=== PATIENT | female | born 1945 | race Caucasian/White ===

== ENCOUNTER 2016-11-09 19:55 | Emergency (ER) | payer OTHER ==
[2016-11-09 20:02] VITALS: RESP 16; TEMP 98.6
--- NOTE | 2016-11-09 20:56 | EDPHY ---
H & P Stated Complaint: head injury, forehead hematoma vs mech fall on stairs HPI/ROS: CHIEF COMPLAINT: Fall, head injury, headache HISTORY OF PRESENT ILLNESS: Patient reports that she was [place] when she tripped and fell. She struck her left knee and then her head. No loss of conscious but she does have a hematoma on the left side of the forehead. Some nausea but no vomiting. [place] lightheaded for brief period of time. Symptoms are mild-to- moderate. Started to improve. She says that she is here because of her age and because of the hematoma. She has no complaints of pain anywhere else on her person. No other associated complaints or modifying factors. No use of anticoagulants. REVIEW OF SYSTEMS: Ten systems reviewed and are negative unless otherwise noted in the HPI PAST MEDICAL HISTORY: Reviewed. No anticoagulants SOCIAL HISTORY: Nonsmoker. She is visiting here from [place]. Her family lives here. She is here for 3 more days. FAMILY HISTORY: Noncontributory EXAMINATION General Appearance: Alert, no distress Head: normocephalic. There is a left frontal hematoma. No laceration. No Cooper sign. No raccoon eyes. No scalp hematoma Eyes: Pupils equal and round, no conjunctival pallor or injection. Bilateral arcus senilis. EOMs intact. No nystagmus. No subconjunctival hemorrhage or hyphema ENT, Mouth: Mucous membranes moist. Airway widely patent Neck: Normal inspection, supple, non-tender. No crepitus, step-off deformity Respiratory: Lungs are clear to auscultation. No wheezing, rhonchi or crackles Cardiovascular: Regular rate and rhythm. No murmur Gastrointestinal: Abdomen is soft and nontender Back: non-tender, no bony abnormalities. No midline tenderness at any level. Neurological: GCS 15. Cranial nerves 2-12 grossly intact. A&O, nonfocal, normal gait. No dysmetria. No pronator drift. Strength is symmetric in all 4 limbs Skin: Warm and dry, no rash. No laceration or abrasion. Mild ecchymosis over the left frontal hematoma. Extremities: Mild tenderness of the left knee. Full range of motion of the hips, knees and ankles symmetrically. With palpation of the extremities or pelvis. Psychiatric: Mood and affect normal DIFFERENTIAL DIAGNOSES: Including but not limited to frontal hematoma, closed head injury, intracranial hemorrhage, skull fracture, contusion MDM: 8:20 p.m. Closed head injury with frontal hematoma. Neuro intact. Nausea but no vomiting. CT scans of the head and neck ordered given the age, mechanism and hematoma. She is in no acute distress. 8:50 p.m. Notified by radiologist Dr. Barone. No acute findings on the CT scan of the head and neck. There are degenerative changes in a frontal hematoma externally. 9:00 p.m. I have re-examined the patient. She remains awake and alert. No acute distress. Neuro intact. We discussed discharge home with ice of the hematoma, Tylenol [id number] as needed, elevation of head of bed. As she is traveling, I instructed her to follow up with her primary care physician upon return home [place] later this week for the head injury and the degenerative disc disease. She should present to the nearest emergency department for any worsening headache, sudden change in headache, neck pain or stiffness, nausea, vomiting, unilateral complaints. She is comfortable with this plan and she will follow up accordingly. She is discharged home in stable condition with her daughter. SUPERVISION: Patient was evaluated in conjunction with the supervising physician. Please see their note for details. Source: Patient, Family Exam Limitations: No limitations - Personal History Current Tetanus/Diphtheria Vaccine: Yes - Medical/Surgical History Hx Asthma: No Hx Chronic Respiratory Disease: No Hx Diabetes: Yes Hx Cardiac Disease: Yes Hx Renal Disease: No Hx Cirrhosis: No Hx Alcoholism: No Hx HIV/AIDS: No Hx Splenectomy or Spleen Trauma: No Other PMH: Diabetes, HTN, glaucoma, lymphoma (in remission) - Social History Smoking Status: Former smoker Constitutional: Initial Vital Signs Temperature (C) 98.6 F 11/09/16 19:58 Heart Rate 86 11/09/16 19:58 Respiratory Rate 16 11/09/16 19:58 Blood Pressure 185/76 H 11/09/16 19:58 O2 Sat (%) 94 11/09/16 19:58 O2 Delivery Mode Room Air Allergies/Adverse Reactions: liraglutide [From Victoza] Adverse Reaction (Verified 11/09/16 20:02) Other-Enter Comments Home Medications: Medication Instructions Recorded Bimatoprost 0.01% [Lumigan 0.01% 1 drops EACHEYE HS 11/09/16 (*)] Calcium Citrate/Vitamin D3 1 each PO 11/09/16 [Calcium Citrate - Vit D Caplet] Canagliflozin/Metformin HCl 1 each PO 11/09/16 [Invokamet 150-1,000 mg Tablet] Chlorpheniramine Maleate 4 mg PO 11/09/16 Cholecalciferol (Vitamin D3) 2,000 unit PO 11/09/16 [Vitamin D3] Cyanocobalamin (Vitamin B-12) 1,000 mcg SL 11/09/16 [Vitamin B-12] Insulin Glargine [Lantus 100 12 units SC DAILY 11/09/16 UNITS/ML (*)] Levothyroxine [Synthroid 75 mcg 75 mcg PO DAILY06 11/09/16 (*)] Losartan Potassium [Cozaar 25 mg 25 mg PO DAILY 11/09/16 (*)] Multivitamin [Multi-Day Vitamins] 1 each PO 11/09/16 Potassium Gluconate 595 mg PO 11/09/16 Pravastatin Sodium 40 mg PO 11/09/16 Vit B6/Me-Thfolate/Me-B12/Ala 1 each PO 11/09/16 [Podiapn Capsule] Medical Decision Making - Diagnostics Imaging Results: Imaging Impressions Cervical Spine CT 11/09/16 20:18 Impression: No acute posttraumatic abnormality identified. 2. CT Cervical Spine Without Contrast, 20:25 History: Trauma. Fall. Technique: Multislice helical CT through the cervical spine without contrast from the skull base to T1. Soft tissue and bone evaluation is performed. Sagittal and coronal reconstructions are obtained and reviewed. Dose reduction techniques were utilized. Findings: Cervical alignment is anatomic. No fracture or dislocation is identified. The relationship between skull base and C1 is normal. The C1-C2 articulation is normally aligned, but osteoarthritic. The odontoid process is intact. Disk spaces are narrowed between C4 and C7, and associated with posterior osteophytes. 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 Facet joints are normally aligned. The facets are fused on the left between C2-C4 and T1-T2 and on the right at C3-C4 and C7 and T1. The cervical thoracic junction is normally aligned. Soft tissue window evaluation does not show evidence of epidural or prevertebral hematoma. There is right upper lobe scarring. 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 Impression: 1.No acute posttraumatic abnormality identified. 2. Multilevel degenerative change. Results communicated to Kehinde Garcia, at 11/09/2016 20:49 Final results are concordant with the initial interpretation. General information for patients regarding this examination can be found at [email or web address]. If you have questions or comments about this report, please contact me at (hospital) or [phone] (cell). Head CT 11/09/16 20:18 Impression: No acute posttraumatic abnormality identified. 2. CT Cervical Spine Without Contrast, 20:25 History: Trauma. Fall. Technique: Multislice helical CT through the cervical spine without contrast from the skull base to T1. Soft tissue and bone evaluation is performed. Sagittal and coronal reconstructions are obtained and reviewed. Dose reduction techniques were utilized. Findings: Cervical alignment is anatomic. No fracture or dislocation is identified. The relationship between skull base and C1 is normal. The C1-C2 articulation is normally aligned, but osteoarthritic. The odontoid process is intact. Disk spaces are narrowed between C4 and C7, and associated with posterior osteophytes. 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 Facet joints are normally aligned. The facets are fused on the left between C2-C4 and T1-T2 and on the right at C3-C4 and C7 and T1. The cervical thoracic junction is normally aligned. Soft tissue window evaluation does not show evidence of epidural or prevertebral hematoma. There is right upper lobe scarring. 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 Impression: 1.No acute posttraumatic abnormality identified. 2. Multilevel degenerative change. Results communicated to Kehinde Garcia, at 11/09/2016 20:49 Final results are concordant with the initial interpretation. General information for patients regarding this examination can be found at [email or web address]. If you have questions or comments about this report, please contact me at [phone] (hospital) or [phone] (cell). Departure - Departure Disposition: Home, Routine, Self-Care Clinical Impression: Degenerative disc disease, cervical Hematoma of frontal scalp Qualifiers: Encounter type: initial encounter Qualified Code(s): S00.03XA - Contusion of scalp, initial encounter Closed head injury Qualifiers: Encounter type: initial encounter Qualified Code(s): S09.90XA - Unspecified injury of head, initial encounter Condition: Good Instructions: Concussion (ED), Head Injury (ED), Contusion in Adults (ED), Hematoma (ED) Additional Instructions: 1. Tylenol [id number] as discussed as needed 2. Follow up with primary care physician for the head injury and the degenerative disc disease 3. Return to the nearest emergency department for worsening headache, sudden change in headache, vomiting, unilateral complaints Referrals: Irasema Nam MD [Medical Doctor] - As per Instructions
[2016-11-09 21:25] VITALS: BP 182/90; PULSE 89; O2SAT 95
== END 2016-11-09 21:25 | disposition home or self-care (01) ==
DX: S00.03XA Contusion of scalp, initial encounter (principal); M50.30 Other cervical disc degeneration, unspecified cervical region; E11.9 Type 2 diabetes mellitus without complications; I10 Essential (primary) hypertension; Z87.891 Personal history of nicotine dependence; Z79.4 Long term (current) use of insulin; W01.198A Fall on same level from slipping, tripping and stumbling with subsequent striking against other object, initial encounter; Y92.89 Other specified places as the place of occurrence of the external cause